=== PATIENT | female | born 1985 | race Two or more races ===

== ENCOUNTER 2018-11-12 05:42 | Emergency (ER) | payer OTHER ==
[~2018-11-12] VITALS: Ht 154.9 cm; Wt 106.1 kg
[~2018-11-12 05:42] MED LIST: AZITHROMYCIN250 MG PO; TUSSI PRES-B L120 M1 PO; ZYRTEC10 MG PO
[2018-11-12] MEDS ORDERED: CIPRO500 MG PO (09:33)
[2018-11-12] MEDS ORDERED: FLUCONAZOLE150 MG PO (09:33)
== END 2018-11-12 09:38 | disposition home or self-care (01) ==
LOC: ER 05:42
DX: N39.0 Urinary tract infection, site not specified (principal)

== ENCOUNTER 2018-12-17 14:31 | Emergency (ER) | payer OTHER ==
[~2018-12-17] VITALS: Ht 154.9 cm; Wt 113.4 kg
[~2018-12-17 14:31] MED LIST changes: +CIPRO500 MG PO; +FLUCONAZOLE150 MG PO
== END 2018-12-17 19:04 | disposition home or self-care (01) ==
LOC: ER 14:31
DX: B34.9 Viral infection, unspecified (principal)

== ENCOUNTER 2019-05-27 19:57 | Emergency (ER) | payer OTHER ==
[~2019-05-27] VITALS: Ht 154.9 cm; Wt 106.1 kg
== END 2019-05-27 22:14 | disposition home or self-care (01) ==
LOC: ER 19:57
DX: S61.221A Laceration with foreign body of left index finger without damage to nail, initial encounter (principal); W26.0XXA Contact with knife, initial encounter; Y93.89 Activity, other specified; Y92.090 Kitchen in other non-institutional residence as the place of occurrence of the external cause; Y99.8 Other external cause status

== ENCOUNTER 2020-04-08 08:03 | Emergency (ER) | payer OTHER ==
[~2020-04-08] VITALS: Ht 154.9 cm; Wt 102.5 kg
[2020-04-08] MEDS ORDERED: KETO10TA2 PO (10:26)
[2020-04-08] MEDS ORDERED: NORFLEX100MG PO (10:26)
== END 2020-04-08 11:02 | disposition home or self-care (01) ==
LOC: ER 08:03
DX: M54.5 Low back pain (principal)

== ENCOUNTER → 2022-04-08 | Emergency (ER) | payer OTHER ==
[~2022-04-08] VITALS: Ht 154.9 cm; Wt 105.7 kg
[~2022-04-08] MED LIST changes: +KETO10TA2 PO; +NORFLEX100MG PO
== END | disposition home or self-care (01) ==
LOC: ER 16:34
DX: M54.50 Low back pain, unspecified (principal)

== ENCOUNTER 2022-05-11 08:47 | Emergency (ER) | payer OTHER ==
[~2022-05-11] VITALS: Ht 154.9 cm; Wt 108.9 kg
[2022-05-11] MEDS ORDERED: NORFLEX100MG PO (09:36)
[2022-05-11] MEDS ORDERED: KETO10TA2 PO (09:36)
== END 2022-05-11 10:18 | disposition home or self-care (01) ==
LOC: ER 08:47
DX: S39.012A Strain of muscle, fascia and tendon of lower back, initial encounter (principal); M19.90 Unspecified osteoarthritis, unspecified site

== ENCOUNTER → 2023-04-17 | Emergency (ER) | payer OTHER ==
[~2023-04-17] VITALS: Ht 154.9 cm; Wt 99.8 kg
[2023-04-17 08:04] LABS: HEMATOCRIT 42.7 % (36.0-45.00); HEMOGLOBIN 14.7 g/dL (12.0-15.00); MEAN CELL VOLUME 83.2 fL (80.00-100.00); MEAN CORPUSCULAR HEMOGLOBIN 28.6 pg (27.00-32.0); MEAN CORPUSCULAR HGB CONC 34.3 g/dl (32.0-36.0); PLATELET COUNT 293 K/uL (150-450); RED BLOOD COUNT 5.13 M/uL (4.00-6.00); RED CELL DISTRIBUTION WIDTH 13.7 % (11.5-14.5)
[2023-04-17 08:39] LABS: ALKALINE PHOSPHATASE 64 U/L (50-136); ALT/SGPT 24 U/L (12-78); ANION GAP 12 (10.0-20.0); AST/SGOT 13 U/L (15-37); BILIRUBIN TOTAL 0.82 mg/dL (0.3-1.2); BLOOD UREA NITROGEN 9 mg/dL (7-18); BUN CREA RATIO 10 (7.0-25.0); CALCIUM 9.4 mg/dL (8.5-10.1); CARBON DIOXIDE 26 mEq/L (21-32); CHLORIDE 103 mmol/L (98-107); CREATININE SERUM 0.91 mg/dL (0.55-1.02); GFR 70.35; GLOBULINA 3.8 G/DL (2.4-3.5); GLUCOSE FASTING 99 mg/dL (65-100); OSMOLALITY SERUM 273 MOSM/KG (275-295); PHOSPHOKINASE CREATININE 63 U/L (26-192); POTASSIUM 3.73 mEq/L (3.5-5.1); SODIUM 137 mmol/L (136-145); TOTAL PROTEIN 7.8 gm/dL (6.4-8.2)
[2023-04-17 08:41] LABS: PH,URINE 5.5 (5.0-8.0); URINE APPEARANCE Turbid; URINE BILIRRUBIN Negative (NEGATIVE); URINE BLOOD Moderate; URINE COLOR Dark Yellow; URINE GLUCOSE Negative (NEGATIVE); URINE LEUKOCYTE Moderate; URINE NITRATE Negative; URINE PROTEIN 30 (NEGATIVE)
[2023-04-17 08:42] LABS: HCG QUANTITATIVE < 1 mUI/mL (1-3)
[2023-04-17 08:46] LABS: URINE RBC 37.9 uL (0.0-20.8); URINE WBC 748.1 uL (0.0-23.2)
[2023-04-17 08:59] LABS: URINE BACTERIA > 9821.5 uL (0.0-1933); URINE EPITHELIAL CELLS > 201.7 uL (0.0-38.8)
[2023-04-17 10:03] LABS: COCAINE NEGATIVE (NEGATIVE); METHADONE NEGATIVE (NEGATIVE); OPIATES NEGATIVE (NEGATIVE); THC ( Cannabinoids) POSITIVE (NEGATIVE)
== END | disposition home or self-care (01) ==
LOC: ER 05:01
PROVIDERS: General Practice
DX: T14.91XA Suicide attempt, initial encounter (principal); X83.8XXA Intentional self-harm by other specified means, initial encounter; Y93.89 Activity, other specified; Y92.89 Other specified places as the place of occurrence of the external cause

== ENCOUNTER 2023-11-30 20:12 | Emergency (ER) | payer OTHER ==
[~2023-11-30] VITALS: Ht 154.9 cm; Wt 95.3 kg
[2023-11-30] MEDS ORDERED: ZOLOFT25 MG PO (20:35)
[2023-11-30] MEDS ORDERED: KETOROLAC TROMETHAMINE 60 MG VIAL IM ONE ×2 (20:45→20:51)
[2023-11-30] MEDS ORDERED: ORPHENADRINE CITRATE 30 MG/ML AMPUL IM ONE (20:45)
[2023-11-30] MEDS ORDERED: ORPHENADRINE CITRATE 30 MG/ML AMPUL ONE (20:51)
[2023-11-30] MEDS ORDERED: KETO10TA2 PO (21:57)
[2023-11-30] MEDS ORDERED: NORFLEX100MG PO (21:57)
== END 2023-11-30 21:59 | disposition home or self-care (01) ==
LOC: ER 20:14
DX: M62.830 Muscle spasm of back (principal); E03.8 Other specified hypothyroidism; J45.909 Unspecified asthma, uncomplicated; F32.89 Other specified depressive episodes; M51.37 Other intervertebral disc degeneration, lumbosacral region
CPT/HCPCS: 72100; 96372; 99283; J1885; J2360

== ENCOUNTER 2024-10-07 15:28 | Emergency (ER) | payer OTHER ==
[~2024-10-07] VITALS: Ht 154.9 cm; Wt 90.7 kg
[~2024-10-07 15:28] MED LIST changes: +ZOLOFT25 MG PO
[2024-10-07] MEDS ORDERED: TETANUS & DIPHTHERIA TOX,ADULT 0.5 ML VIAL IM ONE (16:30)
[2024-10-07] MEDS ORDERED: CEFTRIAXONE SODIUM 1,000 MG VIAL IM ONE (16:30)
[2024-10-07] MEDS ORDERED: LIDOCAINE HCL 1% 10ML VIAL PERCUT ONE (16:30)
[2024-10-07] MEDS ORDERED: POVIDONE-IODINE 118 ML BOTT TOP ONE (16:30)
[2024-10-07] MEDS ORDERED: DUI500 PO (17:21)
== END 2024-10-07 19:12 | disposition home or self-care (01) ==
LOC: ER 15:28
DX: S61.412A Laceration without foreign body of left hand, initial encounter (principal); W26.0XXA Contact with knife, initial encounter; Y93.89 Activity, other specified; Y92.098 Other place in other non-institutional residence as the place of occurrence of the external cause; Y99.8 Other external cause status
CPT/HCPCS: 12002; 90471; 90714; J1670

== ENCOUNTER 2024-11-14 08:41 | Outpatient (CLI) | payer OTHER ==
[~2024-11-14 08:41] MED LIST changes: +DUI500 PO
== END 2024-11-14 08:47 | disposition home or self-care (01) ==
LOC: SONOGRAMA 08:41
PROVIDERS: ATTEND Pathology Anatomic Pathology & Clinical Pathology
DX: D11.0 Benign neoplasm of parotid gland (principal); D44.0 Neoplasm of uncertain behavior of thyroid gland